=== PATIENT | male | born 1985 | race Caucasian/White ===

== ENCOUNTER 2025-06-06 14:20 | Emergency (ER) | payer OTHER, SELFPAY ==
[2025-06-06 14:26] VITALS: BP 160/123
[2025-06-06 14:54] LABS: Hematocrit 47.1 % (39.0-52.0); Hemoglobin 17.1 g/dL (13.0-18.0); Mean Corp Hgb Conc. 36.3 g/dL (33.0-37.0); Mean Corpuscular Volume 81.5 fL (80.0-94.0); Nucleated Red Blood Cells % 0 % (-); Platelet Count 161 10^3/uL (130-400); Red Cell Dist. Width 12.4 % (11.5-14.5)
[2025-06-06 15:13] LABS: COVID-19 Antigen Negative (Negative)
[2025-06-06 15:17] LABS: ALT (SGPT) 26 U/L (0-50); AST (SGOT) 22 U/L (17-59); Albumin 4.8 g/dl (3.5-5.0); Alkaline Phosphatase 65 U/L (38-126); Blood Urea Nitrogen 12 mg/dl (9-20); Calcium 9.5 mg/dl (8.4-10.2); Carbon Dioxide 30 mmol/L (22-30); Chloride 100 mmol/L (98-107); Glucose 103 mg/dl (70-99); Potassium 3.9 mmol/L (3.5-5.1); Sodium 135 mmol/L (135-145); Total Protein 7.6 g/dl (6.3-8.2); eGFR > 60.00
--- NOTE | 2025-06-06 16:36 | ED.GENMED ---
History of Present Illness
General
Chief Complaint: Back Pain
Time Seen by Provider: 06/06/25 16:36
History of Present Illness
History of Present Illness:
FOCUSED PAST MEDICAL HISTORY
- No significant past medical history
REVIEW OF OLD RECORDS
- No old records available for review in [facility]
Note:
CHIEF COMPLAINT(S)
Weakness and back pain.
HISTORY OF PRESENT ILLNESS
The patient is a 40-year-old male who presented with weakness and back pain that began approximately one week ago. The symptoms commenced after he was carrying [place] decorations. The patient describes the initial sensation as soreness or
weakness, particularly in the legs, which felt as though they were shaking. The initial weakness subsided; however, he continues to experience weakness in the back of his thighs and buttocks. He reports a throbbing pain in the lower spine, which
worsened last night, leading to his inability to move comfortably throughout the day. The patients symptoms include waking up frequently at night with sweats and chills, alongside significant discomfort in the lower spine. There is no sharp pain,
and it does not feel like an injury. The patient experienced a subjective fever last night but did not measure his temperature. Today, his blood work, including a white blood cell count, is normal. COVID-19 and influenza tests were negative.
Appetite has been lower than usual, and there is increased frequency in urination over the last few days.
ADDITIONAL HISTORY OBTAINED FROM SOURCES OTHER THAN THE PATIENT
According to the patients previous labs, his white blood cell count was normal, suggesting no bacterial infection. COVID-19 and influenza testing results were also negative.
PAST MEDICAL AND SURIGICAL HISTORY
Not available.
PLAN
The plan includes starting an intravenous line and performing a computed tomography (CT) scan of the abdomen, which will also evaluate the spine, to investigate any alarming conditions. The patient was advised to monitor for true fevers using a
thermometer and report any significant findings. The decision not to proceed with magnetic resonance imaging (MRI) was based on the lack of justifiable clinical evidence. The patient agreed to the CT scan as a reasonable measure given his persistent
symptoms.
DIFFERENTIAL DIAGNOSIS
The Differential Diagnosis includes, in no particular order and is not limited to:
- Viral infection
- Muscle strain
- Spinal disc pathology
- Spinal abscess
- Metabolic disorder
- Neurological disorder
- Autoimmune disorder
- Fibromyalgia
- Renal pathology
- Dehydration
PHYSICAL EXAM
General: Alert, no acute distress.
Skin: Warm, dry.
Head: Normocephalic, atraumatic.
Neck: Supple, trachea midline.
Eye, Ears, Nose, and Throat: Oral mucosa moist.
Cardiovascular: Normal peripheral perfusion, no edema.
Respiratory: Respirations are non-labored.
Gastrointestinal: Abdomen nondistended, non-tender.
Back: Normal range of motion, normal alignment, there is no significant tenderness in the C, T, or L-spine
Musculoskeletal: Normal range of motion, normal strength. Excellent strength in the lower extremities.
Neurological: Alert and oriented to person, place, time, and situation, no focal neurological deficit observed. Excellent L5 and S1 strength. Excellent strength against resistance with flexion of the hips.
Psychiatric: Cooperative, appropriate mood & affect.
The conversation reflects the patients experiences and the examination findings accurately, maintaining consistency in medical terminology and reflecting the structured outline as requested.
RADIOLOGY
- CT imaging shows fatty liver but no sign of discitis or osteomyelitis
LABS
- White count normal at 6.7, hemoglobin normal 17.1, chemistries unremarkable however the total bili is slightly high at 1.8, normal transaminases and normal alk phos, COVID-negative, flu negative
UPDATE
- Given the patient's initial tachycardia with reported chills, will obtain CT imaging. No clear indication for MRI at this time as he is afebrile with no concerning risk to have epidural abscess, spine infection. He has no back pain red flags.
He has no bowel or bladder incontinence or retention.
SUMMARY OF ENCOUNTER
The patient, a 40-year-old male, presented with weakness and back pain that started approximately one week ago after lifting [place] decorations. He described the pain as throbbing in the lower spine, accompanied by weakness in the thighs and
buttocks. He also experienced night sweats, chills, and a subjective fever. However, his white blood cell count is normal, and COVID-19 and influenza tests are negative. A CT scan was performed to evaluate the spine, showing no bony abnormalities,
vertebral body breakdown, or signs of discitis, suggestive of no infection or inflammation. Following assessment and negative findings, the plan was to discharge the patient with instructions to monitor for fever and manage symptoms.
DISPOSITION
Discharge.
ASSESSMENT
The symptoms may be related to a viral infection or muscle strain. The normal laboratory findings and imaging reduce the likelihood of a spinal infection or other alarming conditions.
PLAN
The patient is advised to continue monitoring his symptoms at home, paying particular attention to documenting temperature to assess for fever. He should report any significant changes or findings to his healthcare provider.
INDEPENDENT REVIEW OF LABS AND INTERPRETATION OF TESTS
- My independent review of the complete blood count indicates normal white blood cell count.
- My independent review of the CT scan shows no bony abnormalities, no vertebral body breakdown, and no signs of discitis or infection.
PATIENT EDUCATION AND COUNSELING
The patient was informed about the possibility of a viral syndrome or muscle strain as the cause of his symptoms. He was advised on the importance of monitoring for a true fever and reporting any new or worsening symptoms to ensure proper management.
FOLLOW-UP INSTRUCTIONS
The patient should follow up with his primary care provider if symptoms persist or worsen and report any fever, night sweats, or concerning symptoms.
MEDICAL DECISION MAKING
- Complexity of Data Reviewed: Differential diagnoses considered include viral infection, muscle strain, spinal disc pathology, spinal abscess, metabolic disorder, neurological disorder, autoimmune disorder, fibromyalgia, renal pathology, and
dehydration.
- Data:
Category 1
- My independent review of laboratory tests indicates normal white blood cell count.
- My independent interpretation of the CT scan indicates no bony abnormalities, vertebral body breakdown, or signs of discitis or infection.
Category 2
- Clinical information was obtained from an independent historian, correlating with previous normal labs.
-Risk:
Prescriptions were considered, but as symptoms were non-acute and with normal labs and imaging, supportive outpatient care was recommended, and close monitoring was advised.
DIAGNOSIS
- Back pain, unspecified (ICD-10: M54.9)
Phy Exam
Physical Exam
Physical Exam:
See HPI
Course
Orders/Labs/Results
Orders:
Orders
06/06/25 14:29
Electrocardiogram (*1) Urgent
Reason for Study: Other
Other Reason for Exam: Possible Sepsis
EKG- Treatment ONCE
06/06/25 14:47
COVID-19 Antigen Urgent
Source: Nasal Swab
Complete Blood Count/With Diff Urgent
Comprehensive Metabolic Panel Urgent
INF RAPID [Influenza A+B Rapid Molecular] Urgent
TERRA Source: Nasal Swab
Specimen Description:
06/06/25 16:46
0.9% Sodium Chloride 1000 ml [Nss] 1,000 ml IV BOLUS
06/06/25 16:47
CT Abd/pelvis W Iv Cont Urgent
Comment:
Reason For Exam: tachycardic chills low back pain
06/06/25 16:51
Lactic Acid Q4H
Comment: CANCEL 2nd LACTIC ACID IF 1st LACTIC ACID IS LESS THAN 2
Blood Culture Q30M
TERRA Source: Blood/Venous
Specimen Description:
06/06/25 16:54
Blood Culture Q30M
TERRA Source: Blood/Venous
Specimen Description:
06/06/25 21:00
Lactic Acid Q4H
Comment: CANCEL 2nd LACTIC ACID IF 1st LACTIC ACID IS LESS THAN 2
Abnormal Lab Results
06/06/25
14:47
Absolute Lymphs (auto) 1.0 L 10^3/uL
(1.2-3.4)
Lymphocytes % 15.6 L %
(20.5-51.1)
Glucose 103 H mg/dl
(70-99)
Total Bilirubin 1.8 H mg/dl
(0.2-1.3)
06/06/25 14:47
06/06/25 14:47
Vital Signs
Initial and Last Documented VS:
Initial Vital Signs
Temp Pulse Resp BP Pulse Ox
36.5 C 115 18 160/123 99
06/06/25 14:26 06/06/25 14:26 06/06/25 14:26 06/06/25 14:26 06/06/25 14:26
Last Documented Vital Signs
Temp Pulse Resp BP Pulse Ox
36.5 C 104 16 139/102 97
06/06/25 14:26 06/06/25 16:58 06/06/25 16:58 06/06/25 17:00 06/06/25 17:30
*Pulse Oximetry
SaO2: 99
Oxygen Mode of Delivery: Room air
Patient hypoxic: no
*Critical Care Note
Total Time (30-74mins, 75-104mins- exclusive of procedures): Not Applicable
ED Attending Note
-
Portions of this chart may have been created with voice recognition software.� Occasional wrong word or��sound alike� substitutions may have occurred due to the inherent limitations of voice recognition software.
Discharge Plan
Departure
Referrals:
Antonino Corey DO [Family Provider, Family Practice]
Interventions
Interventions:
*Risk Screen - Suicide Last Done: 06/06/25 14:26
*General Assessment Last Done: 06/06/25 16:59
*Neglect/Abuse Screening Last Done: 06/06/25 16:59
*ED- Fall Risk Assessment Last Done: 06/06/25 16:58
*ED COVID-19 Vaccine History Last Done: 06/06/25 16:58
*ED Influenza Vaccine History Last Done: 06/06/25 16:58
ED-Musculoskeletal Assessment Last Done: 06/06/25 16:59
Discharge Date and Time
Print Language: [place]
[2025-06-06 16:46] VITALS: BP 147/106
[2025-06-06] MEDS: NSS 1000 IV (16:54)
[2025-06-06 17:00] VITALS: BP 139/102
== END 2025-06-06 19:52 | disposition home or self-care (01) ==
LOC: EMR 14:20
PROVIDERS: Emergency Medicine; EMERGENCY PHYSICIAN Emergency Medicine; FAMILY PHYSICIAN Family Medicine
DX: R53.1 Weakness (principal); M54.50 Low back pain, unspecified; R61 Generalized hyperhidrosis; Z11.52 Encounter for screening for COVID-19
CPT/HCPCS: 99284; 96360; 74177; 80053; 83605; 85025; 87040; 87502; 87811; 93005; Q9967